=== PATIENT | female | born 1980 | race Caucasian/White ===

== ENCOUNTER 2017-07-07 07:14 | Emergency (ER) | payer BC ==
[2017-07-07 07:25] VITALS: BP 134/82; PULSE 95; RESP 18; TEMP 99.1
[2017-07-07] MEDS ORDERED: IBUPROFEN 400 MG TAB PO STA ×2 (07:41→07:58)
[2017-07-07] MEDS ORDERED: DEXAMETHASONE 4 MG TAB PO STA ×2 (07:41→07:57)
--- NOTE | 2017-07-07 07:46 | ED ---
General Adult HPI - General Chief complaint: ENT Stated complaint: Sore Throat/Ear Ache Time Seen by Provider: 07/07/17 07:37 Source: patient, RN notes reviewed Mode of arrival: ambulatory Limitations: no limitations - History of Present Illness Initial comments: Patient is a pleasant 37-year-old female presenting to the emergency Department with complaints of sore throat. Onset of symptoms was 1-2 days ago. Symptoms worsen over the night and her much worse this morning. Patient states it hurts to talk. Patient is tolerating oral intake and her own secretions. No difficulty breathing. Patient also has discomfort of the left ear. Patient also has discomfort of the left upper neck. Patient felt chilled this morning. No cough. - Related Data Previous Rx's Medication Instructions Recorded Amoxicillin 500 mg PO Q8H #30 capsule 07/07/17 Allergies Allergy/AdvReac Type Severity Reaction Status Date / Time cephalexin [From Keflex] Allergy Rash/Hives Verified 07/07/17 07:25 Review of Systems ROS Statement: Those systems with pertinent positive or pertinent negative responses have been documented in the HPI. ROS Other: All systems not noted in ROS Statement are negative. Constitutional: Reports: chills Eyes: Denies: eye pain ENT: Reports: ear pain, throat pain Respiratory: Denies: cough Cardiovascular: Denies: chest pain Endocrine: Denies: fatigue Gastrointestinal: Denies: abdominal pain Genitourinary: Denies: dysuria Musculoskeletal: Denies: back pain Skin: Denies: rash Neurological: Denies: weakness Past Medical History Past Medical History: No Reported History History of Any Multi-Drug Resistant Organisms: None Reported Past Surgical History: No Surgical Hx Reported Past Psychological History: No Psychological Hx Reported Smoking Status: Never smoker Past Alcohol Use History: None Reported Past Drug Use History: None Reported General Exam Limitations: no limitations General appearance: alert, in no apparent distress Head exam: Present: atraumatic Eye exam: Present: normal appearance, PERRL ENT exam: Present: TM's normal bilaterally, other (Mild pharyngeal erythema) Neck exam: Present: tenderness (Upper left anterior cervical lymph node), lymphadenopathy. Absent: meningismus Respiratory exam: Present: normal lung sounds bilaterally Cardiovascular Exam: Present: regular rate, normal rhythm GI/Abdominal exam: Present: soft. Absent: tenderness Neurological exam: Present: alert Psychiatric exam: Present: normal affect, normal mood Skin exam: Present: normal color Course Vital Signs 07/07/17 07:24 Temperature 99.1 F Pulse Rate 95 Respiratory 18 Rate Blood Pressure 134/82 O2 Sat by Pulse 99 Oximetry Medical Decision Making - Medical Decision Making Patient states she has previously tolerated amoxicillin without difficulty. - Lab Data Lab Results 07/07/17 Range/Units 07:25 Group A Strep Rapid Negative (Negative) Disposition Clinical Impression: Pharyngitis Disposition: HOME SELF-CARE Condition: Stable Instructions: Pharyngitis (ED) Additional Instructions: Please follow-up with primary care physician in the next couple days for recheck. Please return for difficulty breathing, not tolerating fluids. Not able to swallow your own secretions, worsening symptoms or other concerns. Vitamin C. Salt water gargle. [id number] Motrin as needed. Prescriptions: Amoxicillin 500 mg PO Q8H #30 capsule Is patient prescribed a controlled substance at d/c from ED?: No Referrals: Rashad Henriquez MD [STAFF PHYSICIAN] - 1-2 days Time of Disposition: 07:45
== END 2017-07-07 08:04 | disposition home or self-care (01) ==
LOC: EC 07:14
DX: J02.9 Acute pharyngitis, unspecified (principal); Z88.1 Allergy status to other antibiotic agents
CPT/HCPCS: 87081; 87430; 99283; J8540